=== PATIENT | female | born 1965 | race Caucasian/White ===

== ENCOUNTER 2018-07-19 12:32 | Inpatient (IN) | payer OTHER ==
[2018-07-19] MEDS ORDERED: PANTOPRAZOLE 40 MG/10 ML VIAL IVP STA (13:15)
[2018-07-19] MEDS ORDERED: ONDANSETRON 4 MG/2 ML VIAL IVP STA (13:15)
[2018-07-19] MEDS ORDERED: SODIUM CHLORIDE 0.9% 1,000 ML IV STA (13:15)
[2018-07-19] MEDS ORDERED: MAG HYDROX/AL HYDROX/SIMETH 30 ML, HYOSCYAMINE ELIXIR 10 ML, CIMETIDINE HCL 300 MG PO STA ×3 (13:17)
[2018-07-19 13:47] LABS: Basophils % (A) 0 %; Eosinophils # (A) 0.1 k/uL (0-0.7); Eosinophils % (A) 1 %; HCT 45.6 % (34.0-46.0); HGB 14.6 gm/dL (11.4-16.0); Lymphocytes # (A) 0.9 k/uL (1.0-4.8); Lymphocytes % (A) 6 %; MCH 30.2 pg (25.0-35.0); MCV 94.4 fL (80.0-100.0); Mean Platelet Volume 8.2; Monocytes # (A) 0.4 k/uL (0-1.0); Monocytes % (A) 3 %; Neutrophils # (A) 13.4 k/uL (1.3-7.7); Neutrophils % (A) 90 %; Platelet Count 349 k/uL (150-450); RBC 4.83 m/uL (3.80-5.40); RDW 13.3 % (11.5-15.5)
[2018-07-19 13:49] LABS: Appearance,Urine Cloudy (Clear); Bacteria,Urine Occasional /hpf; Bilirubin,Urine 1+ (Negative); Blood,Urine Large (Negative); Color,Urine Yellow; Glucose,Urine (UA) Negative (Negative); Ketones,Urine Negative (Negative); Leukocyte Esterase,Urine Negative (Negative); Mucus,Urine Moderate /hpf; Nitrite,Urine Negative (Negative); Protein,Urine 1+ (Negative); RBC,Urine 6 /hpf (0-5); Specific Gravity,Urine 1.015 (1.001-1.035); Squamous Epithelial Cell,Urine 1 /hpf (0-4); WBC,Urine 2 /hpf (0-5)
[2018-07-19 14:03] LABS: ALT 330 U/L (9-52); AST 355 U/L (14-36); Albumin 4.2 g/dL (3.5-5.0); Alkaline Phosphatase 198 U/L (38-126); Amylase 81 U/L (30-110); Anion Gap 11 mmol/L; Blood Urea Nitrogen 9 mg/dL (7-17); Calcium 9.6 mg/dL (8.4-10.2); Carbon Dioxide 22 mmol/L (22-30); Chloride 104 mmol/L (98-107); Glucose 133 mg/dL (74-99); Potassium 3.9 mmol/L (3.5-5.1); Sodium 137 mmol/L (137-145); Total Protein 7.1 g/dL (6.3-8.2)
--- NOTE | 2018-07-19 14:13 | XR ---
EXAMINATION TYPE: XR KUB DATE OF EXAM: 07/19/2018 CLINICAL DATA: 53-year-old female abdominal pain, PHH COMPARISON: None FINDINGS: Lung bases are clear. No evidence for free intraperitoneal air. No dilated small bowel or air-fluid levels. Scattered air and stool seen throughout the colon extendi ng distally into the rectum. Mild overall stool burden. Rounded calcification in the right side of the pelvis suggest phleboliths. IMPRESSION: No evidence of bowel obstruction or free intraperitoneal air.
[2018-07-19 14:42] LABS: Lipase 7501 U/L (23-300)
--- NOTE | 2018-07-19 14:49 | ED ---
Abdominal Pain HPI - General Chief Complaint: Abdominal Pain Stated Complaint: upper abdominal pain Time Seen by Provider: 07/19/18 12:53 Source: patient, RN notes reviewed Mode of arrival: ambulatory Limitations: no limitations - History of Present Illness Initial Comments: 53-year-old female presents emergency Department with chief complaint of abdominal pain. She's had 3 bouts of this pain last week or 2 patient states that the pain is in epigastric and upper abdominal region. She states it does not really radiate much. Patient denies any diarrhea Phuong patient is time she has missed some nausea no recent vomiting. Denies fever, chills, chest pain or shortness breath. Patient had no prior abdominal surgeries. - Related Data Home Medications Medication Instructions Recorded Confirmed ALPRAZolam [Xanax] 0.25 mg PO DAILY PRN 04/15/15 04/15/15 Previous Rx's Medication Instructions Recorded Albuterol Sulfate [Proair Hfa] 1 - 2 puff INHALATION Q6HR PRN #1 04/15/15 inhaler predniSONE 20 mg PO BID #20 tab 04/15/15 Allergies Allergy/AdvReac Type Severity Reaction Status Date / Time cephalexin [From Keflex] Allergy Unknown Verified 07/19/18 12:49 Review of Systems ROS Statement: Those systems with pertinent positive or pertinent negative responses have been documented in the HPI. ROS Other: All systems not noted in ROS Statement are negative. Past Medical History Past Medical History: No Reported History, Hyperlipidemia, Hypertension History of Any Multi-Drug Resistant Organisms: None Reported Past Surgical History: No Surgical Hx Reported Past Psychological History: Anxiety, Depression Smoking Status: Current every day smoker Past Alcohol Use History: Occasional Past Drug Use History: None Reported General Exam Limitations: no limitations General appearance: alert, in no apparent distress Head exam: Present: atraumatic, normocephalic, normal inspection Eye exam: Present: normal appearance, PERRL, EOMI. Absent: scleral icterus, conjunctival injection, periorbital swelling Respiratory exam: Present: normal lung sounds bilaterally. Absent: respiratory distress, wheezes, rales, rhonchi, stridor Cardiovascular Exam: Present: regular rate, normal rhythm, normal heart sounds. Absent: systolic murmur, diastolic murmur, rubs, gallop, clicks GI/Abdominal exam: Present: soft, tenderness (Moderate epigastric and left and right upper quadrant tenderness), normal bowel sounds. Absent: distended, guarding, rebound, rigid Back exam: Absent: CVA tenderness (R), CVA tenderness (L) Skin exam: Present: warm, dry, intact, normal color. Absent: rash Course Vital Signs 07/19/18 07/19/18 12:45 14:57 Temperature 97.8 F Pulse Rate 87 101 H Respiratory 18 16 Rate Blood Pressure 123/67 148/73 O2 Sat by Pulse 98 98 Oximetry Medical Decision Making - Lab Data Result diagrams: 07/19/18 13:36 07/19/18 13:36 Lab Results 07/19/18 07/19/18 07/19/18 Range/Units 13:36 13:36 13:36 WBC 15.0 H (3.8-10.6) k/uL RBC 4.83 (3.80-5.40) m/uL Hgb 14.6 (11.4-16.0) gm/dL Hct 45.6 (34.0-46.0) % MCV 94.4 (80.0-100.0) fL MCH 30.2 (25.0-35.0) pg MCHC 32.0 (31.0-37.0) g/dL RDW 13.3 (11.5-15.5) % Plt Count 349 (150-450) k/uL Neutrophils % 90 % Lymphocytes % 6 % Monocytes % 3 % Eosinophils % 1 % Basophils % 0 % Neutrophils # 13.4 H (1.3-7.7) k/uL Lymphocytes # 0.9 L (1.0-4.8) k/uL Monocytes # 0.4 (0-1.0) k/uL Eosinophils # 0.1 (0-0.7) k/uL Basophils # 0.0 (0-0.2) k/uL Sodium 137 (137-145) mmol/L Potassium 3.9 (3.5-5.1) mmol/L Chloride 104 (98-107) mmol/L Carbon Dioxide 22 (22-30) mmol/L Anion Gap 11 mmol/L BUN 9 (7-17) mg/dL Creatinine 0.49 L (0.52-1.04) mg/dL Est GFR (CKD-EPI)AfAm >90 (>60 ml/min/1.73 sqM) Est GFR (CKD-EPI)NonAf >90 (>60 ml/min/1.73 sqM) Glucose 133 H (74-99) mg/dL Calcium 9.6 (8.4-10.2) mg/dL Total Bilirubin 1.0 (0.2-1.3) mg/dL AST 355 H (14-36) U/L ALT 330 H (9-52) U/L Alkaline Phosphatase 198 H (38-126) U/L Total Protein 7.1 (6.3-8.2) g/dL Albumin 4.2 (3.5-5.0) g/dL Amylase 81 (30-110) U/L Lipase 7501 H (23-300) U/L Urine Color Yellow Urine Appearance Cloudy H (Clear) Urine pH 7.0 (5.0-8.0) Ur Specific [place] 1.015 (1.001-1.035) Urine Protein 1+ H (Negative) Urine Glucose (UA) Negative (Negative) Urine Ketones Negative (Negative) Urine Blood Large H (Negative) Urine Nitrite Negative (Negative) Urine Bilirubin 1+ H (Negative) Urine Urobilinogen 2.0 (<2.0) mg/dL Ur Leukocyte Esterase Negative (Negative) Urine RBC 6 H (0-5) /hpf Urine WBC 2 (0-5) /hpf Ur Squamous Epith Cells 1 (0-4) /hpf Urine Bacteria Occasional H (None) /hpf Urine Mucus Moderate H (None) /hpf Disposition Clinical Impression: Choledocholithiasis, Abdominal pain Disposition: ADMITTED IP TO THIS [facility] Condition: Stable Referrals: Mary Lou Brooke MD [Primary Care Provider] - 1-2 days
--- NOTE | 2018-07-19 15:22 | US ---
EXAMINATION TYPE: US gallbladder DATE OF EXAM: 07/19/2018 COMPARISON: NONE CLINICAL HISTORY: Pain. Upper abdomen pain and N/V x 2 days EXAM MEASUREMENTS: Liver Length: 17.4 cm Gallbladder Wall: 0.2 cm CBD: 0.4 cm Right Kidney: 11.3 x 5.2 x 5.1 cm Difficult and limited study due to patient body habitus Pancreas: obscured by overlying midline bowel gas Liver: measures in upper limits of normal, increased echogenicity, heterogeneous, increased attenuat ion Gallbladder: cholelithiasis Evidence for sonographic Kingsley's sign: yes CBD: visualized portions wnl, limited by overlying bowel gas Right Kidney: wnl IMPRESSION: 1. Hepatomegaly with underlying fatty hepatic infiltration. 2. Cholelithiasis.
[2018-07-19] MEDS ORDERED: HYDROmorphone 0.5 MG/0.5 ML SYRINGE IVP STA (15:32)
[2018-07-19] MEDS ORDERED: NALOXONE 0.4 MG/ML 1 ML VIAL IV PRN (15:33)
[2018-07-19] MEDS ORDERED: PIPERACILLIN-TAZOBACTAM 3.375 GM in DEXTROSE/WATER 1 50ML.BAG IVPB STA (15:33)
[2018-07-19] MEDS ORDERED: HYDROmorphone 1 MG/ML 1 ML SYRINGE IVP PRN (15:33)
[2018-07-19] MEDS: SODIUM CHLORIDE 0.9% 1,000 ML IV SCH (15:56)
[2018-07-19] MEDS ORDERED: LORazepam 2 MG/ML INJ IV PRN (21:12)
[2018-07-20] MEDS: SODIUM CHLORIDE 0.9% 1,000 ML IV SCH ×2 (00:59→20:12)
[2018-07-20] MEDS ORDERED: ACETAMINOPHEN IV (For NPO) 1,000 MG in EMPTY BAG 1 BAG IVPB ONE (09:31)
--- NOTE | 2018-07-20 11:51 | P.GSHP ---
History of Present Illness H&P Date: 07/20/18 A pleasant 53-year-old female presented to the emergency room to be evaluated for a chief complaint of developing diffuse abdominal pain across the abdomen radiating to the upper quadrant patient gives history of developing a similar type pain a month ago "went away on its own" patient stated a week ago developed a second episode described it episode is having diffuse burning sensation across the abdomen . Denied any nausea vomiting no change in bowel habits no unintentional weight loss. Patient stated third episode the pain would not go away continue to persist placed to the mid epigastric area and the right upper quadrant of the abdomen. Patient denied any fever chills. Cable nauseated but no recent vomiting. Patient states she does not drink alcohol has never been told she had pancreatitis . No family history of gallbladder disease only new medication prescribed by her PCP was Zocor a statin. Stated that she only took one Zocor did not anymore because she was going camping. no surgical history. Past medical history anxiety depressive disorder, hyperlipidemia, hypertension , history of factor V. Labs obtained in the emergency room AST 355, ALT 330 alk phosphatase 198, amylase 81, lipase 04/27/2001. Total bili 1 The temp was 98 heart rate in the 80s the time of my examinations resting comfortably in bed reported having a headache which was resolved with the IV Tylenol states abdominal pain slightly improved no nausea no vomiting Ultrasound of the abdomen in the ER reviewed the report hepatomegaly with underlying fatty hepatic infiltration cholelithiasis KUB no evidence of a bowel obstruction or free air - Review of Systems Comment: Essentially unremarkable except as mentioned in the present illness Past Medical History Past Medical History: Blood Disorder, CVA/TIA, Hyperlipidemia, Hypertension Additional Past Medical History / Comment(s): PER PT tia "found on MRI", PT STATED SHE HAS "FACTOR 5 LEIDEN"- [facility] SPECIALISTS UNABLE TO VERIFY W/ D/T OFFICE CLOSED AT TIME OF THIS ADMIT. OCC HEAT BURN TAKES OTC MEDS. IRREG HEART BEAT, ANXIETY History of Any Multi-Drug Resistant Organisms: None Reported Past Surgical History: No Surgical Hx Reported Additional Past Surgical History / Comment(s): D&C, WISDOM TEEH EXTRACTED Past Anesthesia/Blood Transfusion Reactions: Motion Sickness Additional Past Anesthesia/Blood Transfusion Reaction / Comment(s): CLAUSTERPHOBIA Smoking Status: Current every day smoker - Past Family History Father Family Medical History: Myocardial Infarction ([place]) Additional Family Medical History / Comment(s): AT AGE 57 FROM [place] Mother Family Medical History: CVA/TIA Additional Family Medical History / Comment(s): FROM STROKE AT AGE 56 Medications and Allergies Home Medications Medication Instructions Recorded Confirmed Type ALPRAZolam [Xanax] 0.25 mg PO BID 04/15/15 07/19/18 History Chlorthalidone [Hygroton] 25 mg PO DAILY 07/19/18 07/19/18 History Escitalopram Oxalate [Lexapro] 10 mg PO DAILY 07/19/18 07/19/18 History Fenofibrate Nanocrystallized 48 mg PO DAILY 07/19/18 07/19/18 History [Fenofibrate] Metoprolol Tartrate 25 mg PO DAILY 07/19/18 07/19/18 History Allergies Allergy/AdvReac Type Severity Reaction Status Date / Time cephalexin [From Keflex] AdvReac Yeast Verified 07/19/18 16:29 infection Surgical - Exam Vital Signs Temp Pulse Resp BP Pulse Ox 97.8 F 87 18 123/67 98 07/19/18 12:45 07/19/18 12:45 07/19/18 12:45 07/19/18 12:45 07/19/18 12:45 GENERAL APPEARANCE: The patient is alert, oriented x 3 , in no acute distress. Resting comfortably in bed VITAL SIGNS: Reviewed HEENT: Head is normocephalic and atraumatic. Pupils are equal and reactive. The nares are patent. Oropharynx is clear without lesions. NECK: Supple without lymphadenopathy. Traches midline. HEART: S1, S2. Regular rate and rhythm. No murmur noted denying chest pain LUNGS: No crackles or wheezes are heard. Good air movement bilaterally and room air ABDOMEN: Soft, bilateral mild tenderness to the right and left upper quadrant and epigastric area reports no nausea no vomiting is not passing gas no stool, nondistended with good bowel sounds. No peritoneal signs. No palpable organomegaly or masses. EXTREMITIES: Normal skin color and turgor. No cyanosis, rash, ulceration, clubbing or edema. Radial pedal pulses are 2/4 bilaterally. NEUROLOGICAL: No focal deficits. Strength and sensation are grossly intact. Results - Labs 07/19/18 13:36 07/19/18 13:36 Abnormal Lab Results - Last 24 Hours (Table) 07/19/18 07/19/18 07/19/18 Range/Units 13:36 13:36 13:36 WBC 15.0 H (3.8-10.6) k/uL Neutrophils # 13.4 H (1.3-7.7) k/uL Lymphocytes # 0.9 L (1.0-4.8) k/uL Creatinine 0.49 L (0.52-1.04) mg/dL Glucose 133 H (74-99) mg/dL AST 355 H (14-36) U/L ALT 330 H (9-52) U/L Alkaline Phosphatase 198 H (38-126) U/L Lipase 7501 H (23-300) U/L Urine Appearance Cloudy H (Clear) Urine Protein 1+ H (Negative) Urine Blood Large H (Negative) Urine Bilirubin 1+ H (Negative) Urine RBC 6 H (0-5) /hpf Urine Bacteria Occasional H (None) /hpf Urine Mucus Moderate H (None) /hpf Diabetes panel 07/19/18 Range/Units 13:36 Sodium 137 (137-145) mmol/L Potassium 3.9 (3.5-5.1) mmol/L Chloride 104 (98-107) mmol/L Carbon Dioxide 22 (22-30) mmol/L BUN 9 (7-17) mg/dL Creatinine 0.49 L (0.52-1.04) mg/dL Glucose 133 H (74-99) mg/dL Calcium 9.6 (8.4-10.2) mg/dL AST 355 H (14-36) U/L ALT 330 H (9-52) U/L Alkaline Phosphatase 198 H (38-126) U/L Total Protein 7.1 (6.3-8.2) g/dL Albumin 4.2 (3.5-5.0) g/dL Calcium panel 07/19/18 Range/Units 13:36 Calcium 9.6 (8.4-10.2) mg/dL Albumin 4.2 (3.5-5.0) g/dL Pituitary panel 07/19/18 Range/Units 13:36 Sodium 137 (137-145) mmol/L Potassium 3.9 (3.5-5.1) mmol/L Chloride 104 (98-107) mmol/L Carbon Dioxide 22 (22-30) mmol/L BUN 9 (7-17) mg/dL Creatinine 0.49 L (0.52-1.04) mg/dL Glucose 133 H (74-99) mg/dL Calcium 9.6 (8.4-10.2) mg/dL Adrenal panel 07/19/18 Range/Units 13:36 Sodium 137 (137-145) mmol/L Potassium 3.9 (3.5-5.1) mmol/L Chloride 104 (98-107) mmol/L Carbon Dioxide 22 (22-30) mmol/L BUN 9 (7-17) mg/dL Creatinine 0.49 L (0.52-1.04) mg/dL Glucose 133 H (74-99) mg/dL Calcium 9.6 (8.4-10.2) mg/dL Total Bilirubin 1.0 (0.2-1.3) mg/dL AST 355 H (14-36) U/L ALT 330 H (9-52) U/L Alkaline Phosphatase 198 H (38-126) U/L Total Protein 7.1 (6.3-8.2) g/dL Albumin 4.2 (3.5-5.0) g/dL Assessment and Plan Assessment: Impression Present on admission bilateral upper quadrant abdominal pain suspect due to cholelithiasis Ultrasound of the abdomen report indicate cholelithiasis, hepatomegaly with fatty hepatic infiltration Present on admission elevated liver enzymes Present on admission elevated lipase 7501 Present on admission leukocytosis History of factor V Present on admission leukocytosis Plan IV fluid for hydration Keep nothing by mouth until decision made treatment plan Repeat CMP,lipase Pain control DVT and GI prophylaxis Further surgical recommendations per surgery after repeating labs tentatively scheduled for a lap cholecystectomy timing to be determined The above impression and plan of care have been discussed and directed by signing physician. Judy Garcia nurse practitioner acting as scribe for signing physician.
[2018-07-20 12:02] LABS: ALT 183 U/L (9-52); AST 80 U/L (14-36); Albumin 3.4 g/dL (3.5-5.0); Alkaline Phosphatase 158 U/L (38-126); Anion Gap 6 mmol/L; Blood Urea Nitrogen 5 mg/dL (7-17); Calcium 8.6 mg/dL (8.4-10.2); Carbon Dioxide 26 mmol/L (22-30); Chloride 104 mmol/L (98-107); Glucose 118 mg/dL (74-99); Potassium 3.2 mmol/L (3.5-5.1); Sodium 136 mmol/L (137-145); Total Bilirubin 0.8 mg/dL (0.2-1.3)
--- NOTE | 2018-07-20 14:18 | P.CONS ---
History of Present Illness - History of Present Illness Patient developed pleasant 53-year-old female came in with the severe epigastric abdominal she pain sharp in nature 10/10 in severity nonradiating. Patient denied any fever chills. Patient found to have alerted left is a 7500 and gallstones on ultrasound. Patient probably has gallstone pancreatitis patient is presently nothing by mouth will undergo cholecystectomy tomorrow. Patient had similar pain in the past which resolved within a day. Patient does have leukocytosis without any other signs or symptoms of sepsis and leukocytosis secondary to pancreatitis. Patient denied any alcohol abuse. Patient will be nothing by mouth except medications. Patient has elevated liver enzymes which are trending down now. And this is secondary to a passed gallstone. Patient was having multiple episodes of nausea vomiting his abdomen had abdominal pain significantly improved even compared to yesterday. Review of Systems REVIEW OF SYSTEMS: CONSTITUTIONAL: No fever, no malaise, no fatigue. HEENT: No recent visual problems or hearing problems. Denied any sore throat. CARDIOVASCULAR: No chest pain, orthopnea, PND, no palpitations, no syncope. PULMONARY: No shortness of breath, no cough, no hemoptysis. GASTROINTESTINAL: As mentioned in HPI NEUROLOGICAL: No headaches, no weakness, no numbness. HEMATOLOGICAL: Denies any bleeding or petechiae. GENITOURINARY: Denies any burning micturition, frequency, or urgency. MUSCULOSKELETAL/RHEUMATOLOGICAL: Denies any joint pain, swelling, or any muscle pain. ENDOCRINE: Denies any polyuria or polydipsia. The rest of the 14-point review of systems is negative. Past Medical History Past Medical History: Blood Disorder, CVA/TIA, Hyperlipidemia, Hypertension Additional Past Medical History / Comment(s): PER PT tia "found on MRI", PT STATED SHE HAS "FACTOR 5 LEIDEN"- [facility] UNABLE TO VERIFY W/ DR. D/T OFFICE CLOSED AT TIME OF THIS ADMIT. OCC HEAT BURN TAKES OTC MEDS. IRREG HEART BEAT, ANXIETY History of Any Multi-Drug Resistant Organisms: None Reported Past Surgical History: No Surgical Hx Reported Additional Past Surgical History / Comment(s): D&C, WISDOM TEEH EXTRACTED Past Anesthesia/Blood Transfusion Reactions: Motion Sickness Additional Past Anesthesia/Blood Transfusion Reaction / Comm: CLAUSTERPHOBIA Smoking Status: Current every day smoker - Past Family History Father Family Medical History: Myocardial Infarction ([place]) Additional Family Medical History / Comment(s): AT AGE 57 FROM [place] Mother Family Medical History: CVA/TIA Additional Family Medical History / Comment(s): FROM STROKE AT AGE 56 Medications and Allergies Home Medications Medication Instructions Recorded Confirmed Type ALPRAZolam [Xanax] 0.25 mg PO BID 04/15/15 07/19/18 History Chlorthalidone [Hygroton] 25 mg PO DAILY 07/19/18 07/19/18 History Escitalopram Oxalate [Lexapro] 10 mg PO DAILY 07/19/18 07/19/18 History Fenofibrate Nanocrystallized 48 mg PO DAILY 07/19/18 07/19/18 History [Fenofibrate] Metoprolol Tartrate 25 mg PO DAILY 07/19/18 07/19/18 History Allergies Allergy/AdvReac Type Severity Reaction Status Date / Time cephalexin [From Keflex] AdvReac Yeast Verified 07/19/18 16:29 infection Physical Exam Vitals: Vital Signs Temp Pulse Pulse Pulse Resp BP BP 07/19/18 23:30 98.1 F 87 18 132/81 07/19/18 16:53 97.8 F 85 16 133/79 07/19/18 16:01 82 18 134/71 07/19/18 15:36 98.5 F 93 18 134/84 07/19/18 14:57 101 H 16 148/73 Pulse Ox 07/19/18 23:30 95 07/19/18 16:53 97 07/19/18 16:01 96 07/19/18 15:36 97 07/19/18 14:57 98 Intake and Output 07/19/18 07/20/18 07/20/18 22:59 06:59 14:59 Other: Voiding Method Toilet # Voids 1 1 Weight 107.6 kg PHYSICAL EXAMINATION: GENERAL: The patient is alert and oriented x3, not in any acute distress. Well developed, well nourished. HEENT: Pupils are round and equally reacting to light. EOMI. No scleral icterus. No conjunctival pallor. Normocephalic, atraumatic. No pharyngeal erythema. No thyromegaly. CARDIOVASCULAR: S1 and S2 present. No murmurs, rubs, or gallops. PULMONARY: Chest is clear to auscultation, no wheezing or crackles. ABDOMEN: We will epigastric abdominal tenderness no rebound or rigidity Kingsley' s sign is negative. MUSCULOSKELETAL: No joint swelling or deformity. EXTREMITIES: No cyanosis, clubbing, or pedal edema. NEUROLOGICAL: Gross neurological examination did not reveal any focal deficits. SKIN: No rashes. Results CBC & Chem 7: 07/19/18 13:36 07/20/18 11:21 Labs: Abnormal Lab Results - Last 24 Hours (Table) 07/19/18 07/20/18 Range/Units 13:36 11:21 Sodium 136 L (137-145) mmol/L Potassium 3.2 L (3.5-5.1) mmol/L BUN 5 L (7-17) mg/dL Creatinine 0.49 L (0.52-1.04) mg/dL Glucose 133 H 118 H (74-99) mg/dL AST 355 H 80 H (14-36) U/L ALT 330 H 183 H (9-52) U/L Alkaline Phosphatase 198 H 158 H (38-126) U/L Total Protein 6.0 L (6.3-8.2) g/dL Albumin 3.4 L (3.5-5.0) g/dL Lipase 7501 H (23-300) U/L Assessment and Plan Plan: -Acute pancreatitis: Gallstone pancreatitis patient will undergo cholecystectomy tomorrow patient is nothing by mouth IV fluids. -Elevated liver enzymes secondary to the passed gallstone. -Hyponatremia: Potassium was supplemented secondary to natriuretic hyponatremia -Leukocytosis: Secondary to pancreatitis -History of CVA TIA in the past next and have an hypertension -Hyperlipidemia For above-mentioned chronic medical problems patient will be resumed on appropriate medications whenever she can tolerate them by mouth
[2018-07-20] MEDS: POTASSIUM CHLORIDE 20 MEQ in WATER FOR INJECTION 1 100ML.BAG IVPB SCH ×2 (14:30→17:15)
[2018-07-20] MEDS: PIPERACILLIN-TAZOBACTAM 3.375 GM in DEXTROSE/WATER 1 50ML.BAG IVPB SCH ×2 (14:42→21:25)
[2018-07-20] MEDS ORDERED: PIPERACILLIN-TAZOBACTAM 3.375 GM in DEXTROSE/WATER 1 50ML.BAG IVPB SCH (16:00)
[2018-07-20] MEDS: ONDANSETRON 4 MG/2 ML VIAL IVP PRN (16:01)
[2018-07-20] MEDS ORDERED: ACETAMINOPHEN IV (For NPO) 1,000 MG in EMPTY BAG 1 BAG IVPB STA (19:05)
[2018-07-20] MEDS ORDERED: ACETAMINOPHEN IV (For NPO) 1,000 MG in EMPTY BAG 1 BAG IVPB PRN (20:14)
[2018-07-21] MEDS: SODIUM CHLORIDE 0.9% 1,000 ML IV SCH ×3 (03:56→21:50)
[2018-07-21] MEDS: PIPERACILLIN-TAZOBACTAM 3.375 GM in DEXTROSE/WATER 1 50ML.BAG IVPB SCH ×3 (03:57→19:46)
[2018-07-21 08:03] LABS: Basophils % (A) 0 %; Eosinophils # (A) 0.1 k/uL (0-0.7); Eosinophils % (A) 0 %; HCT 41.2 % (34.0-46.0); HGB 12.9 gm/dL (11.4-16.0); Lymphocytes # (A) 1.1 k/uL (1.0-4.8); Lymphocytes % (A) 8 %; MCH 30.3 pg (25.0-35.0); MCHC 31.3 g/dL (31.0-37.0); MCV 96.7 fL (80.0-100.0); Mean Platelet Volume 8.1; Monocytes # (A) 0.6 k/uL (0-1.0); Monocytes % (A) 4 %; Neutrophils # (A) 11.2 k/uL (1.3-7.7); Neutrophils % (A) 86 %; Platelet Count 286 k/uL (150-450); RBC 4.26 m/uL (3.80-5.40); RDW 13.5 % (11.5-15.5)
[2018-07-21 08:28] LABS: ALT 147 U/L (9-52); AST 62 U/L (14-36); Albumin 3.6 g/dL (3.5-5.0); Alkaline Phosphatase 157 U/L (38-126); Anion Gap 12 mmol/L; Blood Urea Nitrogen 7 mg/dL (7-17); Calcium 8.6 mg/dL (8.4-10.2); Carbon Dioxide 21 mmol/L (22-30); Chloride 105 mmol/L (98-107); Glucose 124 mg/dL (74-99); Lipase 98 U/L (23-300); Potassium 3.4 mmol/L (3.5-5.1); Sodium 138 mmol/L (137-145); Total Bilirubin 1.1 mg/dL (0.2-1.3); Total Protein 6.2 g/dL (6.3-8.2)
[2018-07-21] MEDS ORDERED: METOPROLOL TARTRATE 12.5 MG TAB PO SCH (09:00)
[2018-07-21] MEDS: ESCITALOPRAM 10 MG TAB PO SCH (09:38)
[2018-07-21] MEDS: PANTOPRAZOLE 40 MG/10 ML VIAL IVP SCH (09:38)
[2018-07-21] MEDS ORDERED: IV FLUID CONTINUATION 1,000 ML IV ONE (10:47)
[2018-07-21] MEDS ORDERED: METOPROLOL TARTRATE 25 MG TAB PO STA (11:00)
[2018-07-21] MEDS: ONDANSETRON 4 MG/2 ML VIAL IVP PRN ×2 (11:04→21:48)
[2018-07-21] MEDS ORDERED: BUPIVACAIN-EPI 0.25%-1:200,000 30 ML VIAL SQ ONE ×2 (11:39→12:36)
[2018-07-21] MEDS ORDERED: ePHEDrine SULFATE/0.9% NACL/PF 50 MG/5 ML SYRINGE IV ONE (11:50)
[2018-07-21] MEDS ORDERED: KETOROLAC 30 MG/ML 1 ML VIAL ONE (11:50)
[2018-07-21] MEDS ORDERED: LIDOCAINE 1% INJ 10MG/ML (20 ML MDV) ONE (11:50)
[2018-07-21] MEDS ORDERED: NEOSTIGMINE 1 MG/ML 10 ML VIAL ONE (11:50)
[2018-07-21] MEDS ORDERED: fentaNYL (PF) 50 MCG/ML 2 ML AMP ONE (11:50)
[2018-07-21] MEDS ORDERED: GLYCOPYRROLATE 0.2 MG/ML 2 ML VIAL ONE (11:50)
[2018-07-21] MEDS ORDERED: MIDAZOLAM 2 MG/2 ML VIAL ONE (11:50)
[2018-07-21] MEDS ORDERED: PROPOFOL 10 MG/ML 20 ML VIAL IV ONE (11:50)
[2018-07-21] MEDS ORDERED: HEPARIN SODIUM,PORCINE 5,000 UNIT/ML 1 ML VIAL ONE (11:50)
[2018-07-21] MEDS ORDERED: ROCURONIUM BROMIDE 10 MG/ML 10 ML VIAL IV ONE (11:50)
--- NOTE | 2018-07-21 12:42 | P.OP ---
Date of Procedure: 07/21/18 Preoperative Diagnosis: Gallstone pancreatitis Postoperative Diagnosis: Cholelithiasis Procedure(s) Performed: Laparoscopic cholecystectomy Anesthesia: MAC Surgeon: Daryl Rico Estimated Blood Loss (ml): 5 Pathology: other (Gallbladder) Condition: stable Disposition: PACU Description of Procedure: The patient was placed on the operating table. The patient received a general endotracheal tube anesthesia. The patients abdomen was prepped and draped in the usual sterile fashion. Through an infraumbilical stab incision, the fascia of the anterior abdominal wall was grasped with a pair of Kochers and then the Veress needle was placed in the peritoneal cavity. Position of the Veress needle was confirmed with positive drop test. The abdomen was then insufflated. After adequate insufflation, the 10 mm trocar was placed in the peritoneal cavity. Following this the laparoscope was placed in the peritoneal cavity. The patient was placed in the head-up, right side up position and then a 5 mm trocar was placed in the right lateral and right subcostal position under direct visualization. A 8 mm trocar was placed in the epigastric position. The gallbladder was grasped in the fundus and infundibulum. Traction on the gallbladder was placed in the lateral and the cephalad positions. The triangle of Calot was visualized.. The cystic duct was bluntly dissected until the union of the cystic duct and common bile duct was seen. The cystic duct was then divided and sealed with the Harmonic scissors. A PDS Endoloop was then placed throughout the cystic duct stump. The cystic artery divided and sealed with the Harmonic scissors. The gallbladder was then removed from the liver bed using Harmonic scissors. The gallbladder was then extracted through the epigastric port site. Operative field was checked for any bleeding spots and Harmonic scissors was used to coagulate the liver bed. The abdomen was irrigated. The trocars were removed. The skin was closed using interrupted 3-0 Vicryl suture. Dermabond dressing were applied. The patient tolerated the procedure well.
--- NOTE | 2018-07-21 17:45 | P.PN ---
Subjective Patient developed pleasant 53-year-old female came in with the severe epigastric abdominal she pain sharp in nature 10/10 in severity nonradiating. Patient denied any fever chills. Patient found to have alerted left is a 7500 and gallstones on ultrasound. Patient probably has gallstone pancreatitis patient is presently nothing by mouth will undergo cholecystectomy tomorrow. Patient had similar pain in the past which resolved within a day. Patient does have leukocytosis without any other signs or symptoms of sepsis and leukocytosis secondary to pancreatitis. Patient denied any alcohol abuse. Patient will be nothing by mouth except medications. Patient has elevated liver enzymes which are trending down now. And this is secondary to a passed gallstone. Patient was having multiple episodes of nausea vomiting his abdomen had abdominal pain significantly improved even compared to yesterday. Today on 07/21/2018: Patient underwent laparoscopic cholecystectomy by the surgical team. I saw the patient postop, she was lying in bed with has been at bedside. Patient abdominal pain has resolved and the wounds look clean and closed the abdomen. No nausea vomiting. Bowel sounds are present. Patient currently is on IV fluids at normal saline 100 mL/h, she is on Zosyn. Her blood pressure on the low side was 90/66 today. Currently her blood pressure is 106/79. We will hold metoprolol, she was 25 mg at home lowered during this admission to 12.5 mg. Monitor vitals and labs Pathology still pending Objective - Vital Signs Vital signs: Vital Signs Temp 97.6 F 07/21/18 12:48 Pulse 76 07/21/18 15:30 Resp 16 07/21/18 15:30 BP 106/79 07/21/18 15:30 Pulse Ox 93 L 07/21/18 15:30 Intake & Output 07/20/18 07/21/18 07/21/18 18:59 06:59 18:59 Intake Total 800 100 690 Output Total 3 Balance 800 100 687 Weight 107.6 kg Intake: IV 650 Intake, IV Titration 800 Amount Sodium Chloride 0.9% 1, 800 000 ml @ 100 mls/hr IV . Q10H [facility] Rx#:[id number] Oral 0 100 40 Output: Estimated Blood Loss 3 Other: Voiding Method Toilet - Exam GENERAL: The patient is alert and oriented x3, not in any acute distress. Well developed, well nourished. HEENT: Pupils are round and equally reacting to light. EOMI. No scleral icterus. No conjunctival pallor. Normocephalic, atraumatic. No pharyngeal erythema. No thyromegaly. CARDIOVASCULAR: S1 and S2 present. No murmurs, rubs, or gallops. PULMONARY: Chest is clear to auscultation, no wheezing or crackles. ABDOMEN: We will epigastric abdominal tenderness no rebound or rigidity Kingsley' s sign is negative. MUSCULOSKELETAL: No joint swelling or deformity. EXTREMITIES: No cyanosis, clubbing, or pedal edema. NEUROLOGICAL: Gross neurological examination did not reveal any focal deficits. SKIN: No rashes. - Labs CBC & Chem 7: 07/21/18 07:14 07/21/18 07:14 Labs: Abnormal Lab Results - Last 24 Hours (Table) 07/21/18 07/21/18 Range/Units 07:14 07:14 WBC 13.0 H (3.8-10.6) k/uL Neutrophils # 11.2 H (1.3-7.7) k/uL Potassium 3.4 L (3.5-5.1) mmol/L Carbon Dioxide 21 L (22-30) mmol/L Glucose 124 H (74-99) mg/dL AST 62 H (14-36) U/L ALT 147 H (9-52) U/L Alkaline Phosphatase 157 H (38-126) U/L Total Protein 6.2 L (6.3-8.2) g/dL Assessment and Plan Plan: -Acute pancreatitis: Gallstone pancreatitis patient S/P laparoscopic cholecystectomy today 07/13/1818 . -Elevated liver enzymes secondary to the passed gallstone. Liver enzymes are trending down, keep monitoring -Hyponatremia: Resolved -Leukocytosis: Secondary to pancreatitis, trending down, keep monitoring -History of CVA TIA in the past next and have an hypertension -Hyperlipidemia DVT prophylaxis: We recommend subcutaneous heparin, discussed with staff to inform the primary team GI prophylaxis: Protonix PT/OT: Ordered and is Pending Prognosis is guarded Thank you for consulting us, please feel free to contact us for any further clarification or questions
[2018-07-21 20:38] LABS: Appearance,Urine Cloudy (Clear); Bilirubin,Urine 1+ (Negative); Blood,Urine Large (Negative); Color,Urine Dark Brown; Glucose,Urine (UA) Trace (Negative); Ketones,Urine 1+ (Negative); Leukocyte Esterase,Urine Negative (Negative); Mucus,Urine Many /hpf; Nitrite,Urine Negative (Negative); Protein,Urine 1+ (Negative); RBC,Urine >182 /hpf (0-5); Squamous Epithelial Cell,Urine 13 /hpf (0-4); WBC,Urine 8 /hpf (0-5)
[2018-07-21] MEDS: HYDROmorphone 1 MG/ML 1 ML SYRINGE IVP PRN (21:48)
[2018-07-22 01:02] VITALS: TEMP 98.1
[2018-07-22] MEDS: PIPERACILLIN-TAZOBACTAM 3.375 GM in DEXTROSE/WATER 1 50ML.BAG IVPB SCH ×2 (03:56→12:47)
[2018-07-22] MEDS: ONDANSETRON 4 MG/2 ML VIAL IVP PRN (08:38)
[2018-07-22] MEDS: ESCITALOPRAM 10 MG TAB PO SCH ×2 (08:42→08:48)
[2018-07-22 08:46] VITALS: BP 123/68; PULSE 80; RESP 20
[2018-07-22] MEDS: PANTOPRAZOLE 40 MG/10 ML VIAL IVP SCH (08:48)
[2018-07-22] MEDS: HYDROmorphone 1 MG/ML 1 ML SYRINGE IVP PRN (08:49)
[2018-07-22 09:55] LABS: Basophils % (A) 0 %; Eosinophils # (A) 0.1 k/uL (0-0.7); Eosinophils % (A) 1 %; HCT 35.4 % (34.0-46.0); HGB 11.2 gm/dL (11.4-16.0); Lymphocytes # (A) 1.3 k/uL (1.0-4.8); Lymphocytes % (A) 13 %; MCH 30.4 pg (25.0-35.0); MCHC 31.7 g/dL (31.0-37.0); MCV 95.9 fL (80.0-100.0); Mean Platelet Volume 8.6; Monocytes # (A) 0.4 k/uL (0-1.0); Monocytes % (A) 4 %; Neutrophils # (A) 7.9 k/uL (1.3-7.7); Neutrophils % (A) 80 %; Platelet Count 273 k/uL (150-450); RBC 3.69 m/uL (3.80-5.40); RDW 13.5 % (11.5-15.5); WBC 9.8 k/uL (3.8-10.6)
--- NOTE | 2018-07-22 10:00 | P.PN ---
Subjective Progress Note Date: 07/22/18 Principal diagnosis: Cholecystitis Patient doing well today. Mild discomfort this morning. No labs from today. She is tolerating her clears. Objective - Vital Signs Vital signs: Vital Signs Temp 98.1 F 07/22/18 08:45 Pulse 80 07/22/18 08:45 Resp 20 07/22/18 08:45 BP 123/68 07/22/18 08:45 Pulse Ox 95 07/22/18 08:45 Intake & Output 07/21/18 07/22/18 07/22/18 18:59 06:59 18:59 Intake Total 690 Output Total 3 Balance 687 Weight 107.6 kg Intake: IV 650 Oral 40 Output: Estimated Blood Loss 3 Other: Voiding Method Toilet Toilet # Voids 1 1 - Exam Abdomen: Soft, nondistended, mild tenderness, incisions clean and dry - Labs CBC & Chem 7: 07/21/18 07:14 07/21/18 07:14 Labs: Abnormal Lab Results - Last 24 Hours (Table) 07/21/18 Range/Units 20:00 Urine Appearance Cloudy H (Clear) Urine Protein 1+ H (Negative) Urine Glucose (UA) Trace H (Negative) Urine Ketones 1+ H (Negative) Urine Blood Large H (Negative) Urine Bilirubin 1+ H (Negative) Urine RBC >182 H (0-5) /hpf Urine WBC 8 H (0-5) /hpf Ur Squamous Epith Cells 13 H (0-4) /hpf Urine Mucus Many H (None) /hpf Assessment and Plan (1) Choledocholithiasis Narrative/Plan: increase diet. Start oral pain meds. Check labs this morning. Possible discharge later today. Current Visit: Yes Status: Acute Code(s): K80.50 - CALCULUS OF BILE DUCT W/ O CHOLANGITIS OR CHOLECYST W/O OBST SNOMED Code(s): 298835690
[2018-07-22 10:08] LABS: ALT 118 U/L (9-52); AST 56 U/L (14-36); Alkaline Phosphatase 141 U/L (38-126); Anion Gap 7 mmol/L; Blood Urea Nitrogen 6 mg/dL (7-17); Calcium 7.8 mg/dL (8.4-10.2); Carbon Dioxide 28 mmol/L (22-30); Chloride 104 mmol/L (98-107); Glucose 119 mg/dL (74-99); Potassium 3.3 mmol/L (3.5-5.1); Sodium 139 mmol/L (137-145); Total Bilirubin 0.8 mg/dL (0.2-1.3); Total Protein 5.6 g/dL (6.3-8.2)
[2018-07-22] MEDS: HYDROcodone/APAP 5-325MG 1 EACH TAB PO PRN ×2 (10:38→15:23)
[2018-07-22] MEDS ORDERED: POTASSIUM CHLORIDE ER 20 MEQ TAB.ER PO STA (14:00)
--- NOTE | 2018-07-22 15:34 | PN ---
PROGRESS NOTE DATE OF SERVICE: 07/22/2018 This 53-year-old woman was admitted with gallstone pancreatitis and laparoscopic cholecystectomy. No chest pain. No palpitations. No fever. Surgery is following the patient closely. PHYSICAL EXAM: Alert and oriented x3. Pulse 80, blood pressure 123/68, respiration 20, temperature 98.1, pulse ox 94% on room air. HEENT: Conjunctivae normal, oral mucosa moist. Neck is no jugular venous distention. No carotid bruit, no lymph node enlargement. CARDIOVASCULAR: S1, S2, muffled. RESPIRATORY: Breath sounds diminished at the bases. No rhonchi. No crackles. ABDOMEN: Soft, status post surgery. LEGS: No edema, no swelling. LABS: WBC is 9.8, hemoglobin is 11.7, sodium 130, potassium 3.3, and AST 56 and ALT is 118. ASSESSMENT: 1. Acute gallstone pancreatitis, status post laparoscopic cholecystectomy. 2. Elevated LFTs. 3. Hyponatremia. 4. Leukocytosis. 5. History of cerebrovascular accident, transient ischemic attack. 6. Hyperlipidemia. RECOMMENDATION: Recommend to continue current management and symptomatic treatment. Otherwise, resume the home medications. Followup labs with the primary physician, Dr. Mary Luo Brooke. Further recommendation per Surgery, further recommendations to follow. MMODL / IJN: [id number] /
[2018-07-23] MEDS ORDERED: PANTOPRAZOLE 40 MG TABLET PO SCH (07:30)
== END 2018-07-22 15:30 | disposition home or self-care (01) | DRG 417 ==
LOC: EC 12:32 → 6PED 15:56 → OBSVTOIN 07-20 14:35
PROVIDERS: ADMIT Surgery; ATTEND Surgery
PROC: 0FT44ZZ Resection of Gallbladder, Percutaneous Endoscopic Approach (ICD-10-PCS; principal; 2018-07-21 12:15)
DX: K80.64 Calculus of gallbladder and bile duct with chronic cholecystitis without obstruction (principal); K85.10 Biliary acute pancreatitis without necrosis or infection; D68.51 Activated protein C resistance; E87.1 Hypo-osmolality and hyponatremia; E78.5 Hyperlipidemia, unspecified; F17.200 Nicotine dependence, unspecified, uncomplicated; I10 Essential (primary) hypertension; Z82.49 Family history of ischemic heart disease and other diseases of the circulatory system; Z86.73 Personal history of transient ischemic attack (TIA), and cerebral infarction without residual deficits; Z82.3 Family history of stroke; Z88.1 Allergy status to other antibiotic agents; F40.240 Claustrophobia; F41.9 Anxiety disorder, unspecified; F32.9 Major depressive disorder, single episode, unspecified; Z79.899 Other long term (current) drug therapy
CPT/HCPCS: 36415; 74018; 76705; 80053; 81001; 81025; 82150; 83690; 85025; 88304; 96361; 96365; 96375; 99285